=== PATIENT | male | born 1955 | race Caucasian/White ===

== ENCOUNTER 2017-07-04 06:40 | Observation (INO) ==
[2017-07-04 08:37] LABS: Basophils # 0.1 10*3/uL (0.0-0.2); Eosinophils # 0.1 10*3/uL (0.0-0.87); Eosinophils % 1.4 % (0.00-10.9); Hematocrit 41.1 VOL% (42.0-52.0); Hemoglobin 13.9 GM/DL (14.0-18.0); Immature Granulocytes % 0.3 %; Immature Granulocytes Absolute 0.02 #; Lymphocytes # 0.6 10*3/uL (1.4-4.0); Lymphocytes % 9.8 % (21.2-54.2); Mean Corpuscular HGB Conc 33.8 GM/DL (32-36); Mean Corpuscular Hemoglobin 30 PG (27-34); Mean Corpuscular Volume 87.3 FL (87-102); Mean Platelet Volume 10.7 FL (9.6-12.0); Monocytes # 0.5 10*3/uL (0.11-0.8); Monocytes % 7.4 % (1.7-12.7); Neutrophils % 80.1 % (38.7-73.9); Platelet Count 167 T/CUMM (130-400); Red Blood Count 4.71 MC/CUMM (3.8-5.5); Red Cell Distribution Width 13.2 % (9.3-17.3); White Blood Count 6.3 T/CUMM (4-12)
[2017-07-04 09:15] LABS: Alanine Aminotransferase 34 U/L (16-61); Albumin 3.6 G/DL (3.4-5.0); Alkaline Phosphatase 86 U/L (45-117); Aspartate Amino Transferase 15 U/L (0-37); Blood Urea Nitrogen 26 MG/DL (7-18); Calcium 9.7 MG/DL (8.5-10.1); Glucose 103 MG/DL (74-106); Osmolality,Calculated 287.1 MOS/KG (273-304); Potassium 4.9 MMOL/L (3.5-5.1); Sodium 142 MMOL/L (136-145); Total Protein 7.2 G/DL (6.4-8.3); Troponin I Only < 0.015 NG/ML (0.00-0.045)
[2017-07-04] MEDS ORDERED: ONDANSETRON 4 MG/2 ML VIAL IV PRN (11:25)
[2017-07-04] MEDS ORDERED: LACTULOSE 20 GM/30 ML UDCUP PO PRN (11:25)
[2017-07-04] MEDS ORDERED: DOCUSATE SODIUM 100 MG CAPSULE PO PRN (11:25)
[2017-07-04] MEDS ORDERED: SODIUM CHLORIDE 0.9% 500 ML IV ONE (11:25)
[2017-07-04] MEDS ORDERED: ACETAMINOPHEN 325 MG TABLET PO PRN (11:25)
[2017-07-04] MEDS ORDERED: MORPHINE 2 MG/1 ML SYRINGE IV PRN (11:25)
[2017-07-04 14:54] LABS: Troponin I Only < 0.015 NG/ML (0.00-0.045)
[2017-07-04] MEDS: PANTOPRAZOLE 40 MG TABLET PO SCH (16:45)
[2017-07-04] MEDS: SODIUM CHLORIDE 0.9% 1,000 ML IV SCH (18:56)
[2017-07-04 19:22] LABS: Troponin I Only < 0.015 NG/ML (0.00-0.045)
[2017-07-04] MEDS ORDERED: ALISKIREN 150 MG TABLET PO SCH (21:00)
[2017-07-04] MEDS: ASPIRIN EC 81 MG TABLET PO SCH (21:59)
[2017-07-04] MEDS: POTASSIUM CHLORIDE 10 MEQ TABLET PO SCH (21:59)
[2017-07-04] MEDS: CLOPIDOGREL 75 MG TABLET PO SCH (21:59)
[2017-07-04] MEDS: ATORVASTATIN 80 MG TABLET PO SCH (21:59)
[2017-07-05] MEDS: SODIUM CHLORIDE 0.9% 1,000 ML IV SCH (04:24)
[2017-07-05 07:00] LABS: Basophils % 0.7 % (0.0-0.8); Eosinophils # 0.2 10*3/uL (0.0-0.87); Hematocrit 37.8 VOL% (42.0-52.0); Hemoglobin 12.6 GM/DL (14.0-18.0); Immature Granulocytes % 0.2 %; Immature Granulocytes Absolute 0.01 #; Lymphocytes # 1.2 10*3/uL (1.4-4.0); Lymphocytes % 20.4 % (21.2-54.2); Mean Corpuscular HGB Conc 33.3 GM/DL (32-36); Mean Corpuscular Hemoglobin 29 PG (27-34); Mean Corpuscular Volume 87.1 FL (87-102); Monocytes # 0.6 10*3/uL (0.11-0.8); Monocytes % 10.1 % (1.7-12.7); Neutrophils # 3.7 10*3/uL (1.4-7.4); Neutrophils % 65.6 % (38.7-73.9); Platelet Count 156 T/CUMM (130-400); Red Blood Count 4.34 MC/CUMM (3.8-5.5); Red Cell Distribution Width 13.2 % (9.3-17.3); White Blood Count 5.6 T/CUMM (4-12)
[2017-07-05 07:30] LABS: Calcium 8.5 MG/DL (8.5-10.1); Magnesium 1.8 MG/DL (1.8-2.4); Osmolality,Calculated 286.1 MOS/KG (273-304); Potassium 4.5 MMOL/L (3.5-5.1)
[2017-07-05] MEDS ORDERED: MAGNESIUM SULF RIDER 2 GM in PREMIX 1 EACH IV PRN (08:53)
[2017-07-05] MEDS ORDERED: POTASSIUM CHLORIDE RIDER 10 MEQ in PREMIX 1 EACH IV PRN (08:53)
[2017-07-05] MEDS: PANTOPRAZOLE 40 MG TABLET PO SCH (09:32)
[2017-07-05] MEDS: POTASSIUM CHLORIDE 10 MEQ TABLET PO SCH ×2 (09:32→21:39)
[2017-07-05] MEDS ORDERED: diphenhydrAMINE CAP 25 MG CAPSULE PO ONE (10:00)
[2017-07-05] MEDS ORDERED: DIAZEPAM 5 MG TABLET PO ONE (10:00)
[2017-07-05] MEDS ORDERED: AZILSARTAN MEDOXOMIL 80 MG PO SCH (21:00)
[2017-07-05] MEDS ORDERED: AZILSARTAN PO SCH (21:00)
[2017-07-05] MEDS: CLOPIDOGREL 75 MG TABLET PO SCH (21:39)
[2017-07-05] MEDS: ATORVASTATIN 80 MG TABLET PO SCH (21:39)
[2017-07-05] MEDS: ASPIRIN EC 81 MG TABLET PO SCH (21:39)
[2017-07-06] MEDS ORDERED: diphenhydrAMINE CAP 25 MG CAPSULE PO ONE (07:00)
[2017-07-06] MEDS ORDERED: DIAZEPAM 5 MG TABLET PO ONE (07:00)
[2017-07-06] MEDS ORDERED: HEPARIN/NACL 0.9% 2 UNITS/ML 2,000 ML IV ONE (09:52)
[2017-07-06] MEDS ORDERED: fentaNYL 100 MCG/2 ML VIAL ONE (09:52)
[2017-07-06] MEDS ORDERED: LIDOCAINE 1%/EPI INJ 20 ML VIAL ONE (09:52)
[2017-07-06] MEDS ORDERED: MIDAZOLAM 2 MG/2 ML VIAL ONE (09:52)
[2017-07-06] MEDS ORDERED: ENOXAPARIN 60 MG/0.6 ML SYRINGE ONE (10:16)
[2017-07-06] MEDS ORDERED: ADENOSINE 90 MG/30 ML VIAL IV ONE (10:18)
[2017-07-06] MEDS ORDERED: SODIUM CHLORIDE 0.45% 1,000 ML IV SCH (11:00)
[2017-07-06] MEDS: PANTOPRAZOLE 40 MG TABLET PO SCH (11:24)
[2017-07-06] MEDS: POTASSIUM CHLORIDE 10 MEQ TABLET PO SCH (11:24)
[2017-07-06] MEDS: ATORVASTATIN 80 MG TABLET PO SCH (20:58)
[2017-07-06] MEDS: CLOPIDOGREL 75 MG TABLET PO SCH (21:03)
[2017-07-06] MEDS: ASPIRIN EC 81 MG TABLET PO SCH (21:04)
[2017-07-07 07:19] LABS: Calcium 8.5 MG/DL (8.5-10.1); Osmolality,Calculated 283.3 MOS/KG (273-304); Potassium 4.4 MMOL/L (3.5-5.1)
[2017-07-07 08:28] VITALS: BP 116/77
[2017-07-07] MEDS ORDERED: POTASSIUM CHLORIDE 10 MEQ TABLET PO SCH (09:00)
[2017-07-07] MEDS: PANTOPRAZOLE 40 MG TABLET PO SCH (10:48)
== END 2017-07-07 10:49 | disposition home or self-care (01) ==
LOC: N.ED 06:40 → N.EDINP 06:40 → N.2E 17:10
PROVIDERS: ADMIT Internal Medicine; ATTEND Internal Medicine
PROC: CLCCHCL (ICD-10-PCS; 2017-07-06 10:15)